=== PATIENT | female | born 2000 | race Caucasian/White ===

== ENCOUNTER 2025-04-11 10:28 | Day surgery (SDC) | payer OTHER ==
[~2025-04-11] VITALS: Ht 172.7 cm; Wt 100.0 kg
[2025-04-11] MEDS ORDERED: OMEPRAZOLE DR 40 MG (10:49)
[2025-04-11] MEDS ORDERED: BUSP5 (10:49)
[2025-04-11] MEDS ORDERED: BUDEPRION XL 300MG (10:49)
[2025-04-11] MEDS ORDERED: NORTRIPTYLINE H2512 (10:50)
[2025-04-11] MEDS ORDERED: PROG100 (10:50)
[2025-04-11] MEDS ORDERED: Midazolam HCL 1 MG/ML 5MLVIAL ONE (11:35)
== END 2025-04-11 13:10 | disposition home or self-care (01) ==
LOC: ORSCSDS 10:28
PROVIDERS: Specialist
PROC: 0DB98ZX Excision of Duodenum, Via Natural or Artificial Opening Endoscopic, Diagnostic (ICD-10-PCS; principal; 2025-04-11 12:00)
PROC: 0DB58ZX Excision of Esophagus, Via Natural or Artificial Opening Endoscopic, Diagnostic (ICD-10-PCS; principal; 2025-04-11 12:00)
PROC: 0DB78ZX Excision of Stomach, Pylorus, Via Natural or Artificial Opening Endoscopic, Diagnostic (ICD-10-PCS; principal; 2025-04-11 12:00)
PROC: 0DJD8ZZ Inspection of Lower Intestinal Tract, Via Natural or Artificial Opening Endoscopic (ICD-10-PCS; principal; 2025-04-11 12:00)
DX: R10.13 Epigastric pain (principal); K21.9 Gastro-esophageal reflux disease without esophagitis; R94.8 Abnormal results of function studies of other organs and systems; K29.70 Gastritis, unspecified, without bleeding; Z79.899 Other long term (current) drug therapy
CPT/HCPCS: 88305; 88342; J2250; J2704; J7120